=== PATIENT | male | born 1995 | race Caucasian/White ===

== ENCOUNTER 2020-04-24 21:36 | Emergency (ER) | payer OTHER ==
[~2020-04-24] VITALS: Ht 175.3 cm; Wt 99.8 kg
[2020-04-24] MEDS ORDERED: AUGMENTIN 875-1 EACH PO (23:42)
[2020-04-24 23:54] VITALS: BP 132/96
== END 2020-04-24 23:56 | disposition home or self-care (01) ==
LOC: ER 21:36
DX: S01.111A Laceration without foreign body of right eyelid and periocular area, initial encounter (principal); W54.0XXA Bitten by dog, initial encounter; Y93.89 Activity, other specified; Y92.89 Other specified places as the place of occurrence of the external cause; Y99.8 Other external cause status